=== PATIENT | male | born 1965 | race African-American/Black ===

== ENCOUNTER 2017-10-12 16:41 | Emergency (ER) | payer MEDICARE, OTHER ==
[~2017-10-12] VITALS: Ht 167.6 cm; Wt 68.2 kg
[~2017-10-12 16:41] MED LIST: BENA20 PO; CYCL10 PO; DIAZ10 PO; GABA-531 PO; METO-558 PO; OXYC10 PO; TRAZ-147 PO
[2017-10-12] MEDS ORDERED: TEMA15CA PO ×2 (17:26→19:55)
[2017-10-12] MEDS ORDERED: DOCU250C91 PO ×2 (17:26→19:55)
[2017-10-12] MEDS ORDERED: ALBU8.5H8 IH ×2 (17:26→19:55)
[2017-10-12] MEDS ORDERED: MS100DRIP PO (17:26)
[2017-10-12] MEDS ORDERED: HYDR2 PO ×2 (17:26→19:55)
[2017-10-12] MEDS ORDERED: TRAM50TA4 PO ×2 (17:26→19:55)
[2017-10-12] MEDS ORDERED: CLON.5 PO ×2 (17:26→19:55)
[2017-10-12] MEDS ORDERED: ATOR20TA86 PO ×2 (17:26→19:55)
[2017-10-12] MEDS ORDERED: LISI1TAB11 PO ×2 (17:26→19:55)
[2017-10-12] MEDS ORDERED: SERT50TA12 PO ×2 (17:26→19:55)
[2017-10-12] MEDS ORDERED: AMLO-511 PO ×2 (17:26→19:55)
[2017-10-12 17:33] LABS: GLUCOSE,POINT OF CARE 94 MG/DL (70-110)
[2017-10-12] MEDS ORDERED: LORazepam 1 MG TABLET PO ONE (19:45)
[2017-10-12] MEDS ORDERED: MORP15 PO ×2 (19:51→19:55)
[2017-10-12] MEDS ORDERED: METO-558 PO (19:55)
[2017-10-12 20:00] LABS: BASOPHILS % (AUTO) 0.3 % (0.0-2.0); EOSINOPHILS % (AUTO) 0 % (1.0-6.0); HEMATOCRIT 46.4 % (41-53); HEMOGLOBIN 16.4 g/dL (13.5-17.5); LYMPHOCYTES # (AUTO) 2.3 K/uL (1.0-4.8); LYMPHOCYTES % (AUTO) 24.7 % (22.0-44.0); MEAN CORPUSCULAR HEMOGLOBIN 31.1 pg (26.0-34.0); MEAN CORPUSCULAR HGB CONC 35.4 G/dL (31.0-37.0); MEAN CORPUSCULAR VOLUME 88 fL (80-100); MONOCYTES # (AUTO) 0.7 K/uL (0.1-1.0); MONOCYTES % (AUTO) 7.3 % (2.0-9.0); NEUTROPHILS # (AUTO) 6.2 K/uL (1.8-7.7); NEUTROPHILS % (AUTO) 67.7 % (40.0-70.0); PLATELET COUNT (AUTO) 292 K/uL (150-450); RED BLOOD CELL COUNT(AUTO) 5.27 MIL/uL (4.50-5.90); RED CELL DISTRIBUTION WIDTH 13.1 % (11.5-14.5)
[2017-10-12 20:04] LABS: AMPHET/METH SCREEN,URINE NEGATIVE (NEGATIVE); BARBITURATE SCREEN, URINE NEGATIVE (NEGATIVE); BENZODIAZEPINES SCREEN,URINE NEGATIVE (NEGATIVE); CANNABINOID SCREEN,URINE POSITIVE (NEGATIVE); COCAINE SCREEN,URINE NEGATIVE (NEGATIVE); METHADONE SCREEN, URINE NEGATIVE (NEGATIVE); OPIATE SCREEN,URINE NEGATIVE (NEGATIVE)
[2017-10-12 20:28] LABS: PHENCYCLIDINE SCREEN,URINE NEGATIVE (NEGATIVE)
[2017-10-12 20:35] LABS: ALANINE AMINOTRANSFERASE 34 U/L (12-78); ALBUMIN 4.6 g/dL (3.4-5.0); ALKALINE PHOSPHATASE 59 U/L (46-116); ANION GAP 9 mmol/L (8-16); ASPARTATE AMINOTRANSFERASE 26 U/L (15-37); BILIRUBIN,TOTAL 0.4 mg/dL (0.1-1.0); CALCIUM, TOTAL 9.2 mg/dL (8.8-10.5); CARBON DIOXIDE 29 mmol/L (22-29); CHLORIDE 103 mmol/L (98-107); CREATININE 0.97 mg/dL (0.60-1.30); GLOMERULAR FILTR. RATE CALC > 60 mL/min (>60); GLUCOSE,RANDOM 94 mg/dL (70-110); SODIUM SERUM 141 mmol/L (136-145); TOTAL PROTEIN, SERUM 8.5 g/dL (6.4-8.2); UREA NITROGEN, BLOOD 9 mg/dL (7-18)
[2017-10-12 20:37] LABS: POTASSIUM 2.7 mmol/L (3.5-5.1)
[2017-10-12] MEDS ORDERED: POTASSIUM CHLORIDE 20 MEQ ER TABLET PO ONE (20:45)
[2017-10-12 20:50] LABS: APPEARANCE,URINE CLEAR (CLEAR); BILIRUBIN,URINE NEGATIVE (NEGATIVE); GLUCOSE, URINE (UA) NEGATIVE (NEGATIVE); KETONES,URINE NEGATIVE (NEGATIVE); LEUKOCYTE ESTERASE ,URINE NEGATIVE (NEGATIVE); NITRATE,URINE NEGATIVE (NEGATIVE); OCCULT BLOOD,URINE NEGATIVE (NEGATIVE); PROTEIN,URINE NEGATIVE (NEGATIVE); UROBILINOGEN,URINE 0.2 mg/dL (<=1.0)
[2017-10-12] MEDS ORDERED: HYDROmorphone 2 MG/ML SYRINGE IVP ONE (21:00)
[2017-10-12] MEDS ORDERED: CloNIDine HCL 0.2 MG TABLET PO ONE (23:00)
[2017-10-12] MEDS ORDERED: CloNIDine HCL 0.1 MG TABLET ONE (23:13)
[2017-10-12] MEDS ORDERED: CloNIDine HCL 0.1 MG TABLET PO ONE (23:15)
[2017-10-13] VITALS: BP 150/87
== END 2017-10-13 00:10 | disposition home or self-care (01) ==
LOC: EMS 16:42
DX: F41.9 Anxiety disorder, unspecified (principal); R55 Syncope and collapse; E78.00 Pure hypercholesterolemia, unspecified; I10 Essential (primary) hypertension; G43.909 Migraine, unspecified, not intractable, without status migrainosus; G89.29 Other chronic pain; Z88.6 Allergy status to analgesic agent
CPT/HCPCS: 36415; 70450; 71045; 80053; 80307; 81003; 82962; 84484; 85025; 93005; 96374; 99285; J1170

== ENCOUNTER 2018-12-29 01:14 | Emergency (ER) | payer MEDICARE, OTHER ==
[~2018-12-29] VITALS: Ht 167.6 cm; Wt 84.5 kg
[~2018-12-29 01:14] MED LIST changes: +ALBU8.5H8 IH; +AMLO5TAB9 PO; +ATOR20TA86 PO; -BENA20 PO; +CLON.5 PO; -CYCL10 PO; -DIAZ10 PO; +DOCU250C91 PO; -GABA-531 PO; +HYDR2 PO; +LISI1TAB11 PO; +MORP15 PO; -OXYC10 PO; +SERT50TA12 PO; +TEMA15CA PO; +TRAM50TA4 PO; -TRAZ-147 PO
[2018-12-29] MEDS ORDERED: MECL-111 PO (01:31)
[2018-12-29] MEDS ORDERED: ASPI-556 PO (01:31)
[2018-12-29] MEDS ORDERED: TAMS-1 PO (01:31)
[2018-12-29 02:02] LABS: BASOPHILS % (AUTO) 0.9 % (0.0-2.0); EOSINOPHILS % (AUTO) 3.6 % (1.0-6.0); HEMATOCRIT 42.2 % (41-53); HEMOGLOBIN 14.2 g/dL (13.5-17.5); LYMPHOCYTES # (AUTO) 2.3 K/uL (1.0-4.8); LYMPHOCYTES % (AUTO) 25.6 % (22.0-44.0); MEAN CORPUSCULAR HEMOGLOBIN 30.6 pg (26.0-34.0); MEAN CORPUSCULAR HGB CONC 33.7 G/dL (31.0-37.0); MEAN CORPUSCULAR VOLUME 91 fL (80-100); MONOCYTES # (AUTO) 1.1 K/uL (0.1-1.0); MONOCYTES % (AUTO) 12.3 % (2.0-9.0); NEUTROPHILS # (AUTO) 5.2 K/uL (1.8-7.7); NEUTROPHILS % (AUTO) 57.6 % (40.0-70.0); PLATELET COUNT (AUTO) 239 K/uL (150-450); RED BLOOD CELL COUNT(AUTO) 4.65 MIL/uL (4.50-5.90); RED CELL DISTRIBUTION WIDTH 12.7 % (11.5-14.5)
[2018-12-29 02:21] LABS: ALANINE AMINOTRANSFERASE 19 U/L (12-78); ALBUMIN 4.1 g/dL (3.4-5.0); ALKALINE PHOSPHATASE 56 U/L (46-116); ANION GAP 7 mmol/L (8-16); ASPARTATE AMINOTRANSFERASE 20 U/L (15-37); BILIRUBIN,TOTAL 0.4 mg/dL (0.1-1.0); CALCIUM, TOTAL 8.5 mg/dL (8.8-10.5); CARBON DIOXIDE 30 mmol/L (22-29); CHLORIDE 103 mmol/L (98-107); CREATININE 1.21 mg/dL (0.60-1.30); GLOMERULAR FILTR. RATE CALC > 60 mL/min (>60); GLUCOSE,RANDOM 107 mg/dL (70-110); SODIUM SERUM 140 mmol/L (136-145); TOTAL PROTEIN, SERUM 7.3 g/dL (6.4-8.2); UREA NITROGEN, BLOOD 16 mg/dL (7-18)
[2018-12-29] MEDS ORDERED: POTASSIUM CHLORIDE 10% 40 MEQ/30 ML LIQUID UDCUP PO ONE (04:00)
[2018-12-29] MEDS ORDERED: AmLODIPine BESYLATE 5 MG TABLET PO ONE (05:30)
[2018-12-29] MEDS ORDERED: HYDROmorphone HCL 2 MG TABLET PO ONE (05:30)
[2018-12-29 06:00] VITALS: BP 154/98
== END 2018-12-29 06:32 | disposition home or self-care (01) ==
LOC: EMS 01:16
DX: R13.10 Dysphagia, unspecified (principal); E87.6 Hypokalemia; G89.29 Other chronic pain; R51 Headache; I10 Essential (primary) hypertension; E78.00 Pure hypercholesterolemia, unspecified; F32.9 Major depressive disorder, single episode, unspecified; Z88.6 Allergy status to analgesic agent; Z79.899 Other long term (current) drug therapy
CPT/HCPCS: 93005